=== PATIENT | male | born 1980 | race Caucasian/White ===

== ENCOUNTER 2017-04-29 09:06 | Emergency (ER) | payer SELFPAY ==
[~2017-04-29] VITALS: Ht 185.4 cm; Wt 72.7 kg
[~2017-04-29 09:06] MED LIST: AMOXICILLIN875 MG PO; BAYER BACK & B1 EACH PO; IBUPROFEN200 M2 PO; MIRALAX17 GM/DOSE PO; MOTRIN800 MG PO; NO HOME MEDICATIONS; NORCO 325 MG-51 TA1 PO; NORCO 325 MG-7.1 TA1 PO; ZOFRAN ODT8 MG PO
[2017-04-29] MEDS ORDERED: AMOXIL500 M1 PO (09:37)
[2017-04-29 10:32] VITALS: BP 128/98
== END 2017-04-29 10:32 | disposition home or self-care (01) ==
LOC: ED 09:06
DX: K05.00 Acute gingivitis, plaque induced (principal); K08.89 Other specified disorders of teeth and supporting structures; F17.200 Nicotine dependence, unspecified, uncomplicated

== ENCOUNTER 2017-05-29 09:52 | Emergency (ER) | payer SELFPAY ==
[~2017-05-29] VITALS: Ht 182.9 cm; Wt 72.7 kg
[~2017-05-29 09:52] MED LIST changes: +AMOXIL500 M1 PO
[2017-05-29] MEDS ORDERED: ADVIL 200MG TA200 MG PO (10:07)
[2017-05-29 11:11] VITALS: BP 153/110
== END 2017-05-29 11:15 | disposition home or self-care (01) ==
LOC: ED 09:52
DX: H26.9 Unspecified cataract (principal)

== ENCOUNTER 2017-12-15 13:44 | Emergency (ER) | payer SELFPAY ==
[~2017-12-15] VITALS: Ht 185.4 cm; Wt 81.8 kg
[~2017-12-15 13:44] MED LIST changes: +ADVIL 200MG TA200 MG PO
[2017-12-15] MEDS ORDERED: NORCO 325 MG-51 TA1 PO (15:39)
[2017-12-15 15:48] VITALS: BP 132/100
[2017-12-15] MEDS ORDERED: PHENERGAN 25 TA25 MG PO (16:25)
== END 2017-12-15 15:48 | disposition home or self-care (01) ==
LOC: ED 13:44
DX: G43.809 Other migraine, not intractable, without status migrainosus (principal); H26.9 Unspecified cataract
CPT/HCPCS: J1885

== ENCOUNTER 2019-02-18 11:05 | Emergency (ER) | payer SELFPAY ==
[~2019-02-18] VITALS: Ht 185.4 cm; Wt 81.8 kg
[~2019-02-18 11:05] MED LIST changes: +PHENERGAN 25 TA25 MG PO
[2019-02-18 12:45] VITALS: BP 128/97
== END 2019-02-18 12:40 | disposition home or self-care (01) ==
LOC: ED 11:05
DX: H16.221 Keratoconjunctivitis sicca, not specified as Sjogren's, right eye (principal); H40.9 Unspecified glaucoma; H26.9 Unspecified cataract; F17.210 Nicotine dependence, cigarettes, uncomplicated

== ENCOUNTER 2019-05-13 09:45 | Emergency (ER) | payer SELFPAY ==
[~2019-05-13] VITALS: Ht 182.9 cm; Wt 77.3 kg
[2019-05-13 11:34] VITALS: BP 125/92
== END 2019-05-13 11:13 | disposition home or self-care (01) ==
LOC: ED 09:45
DX: J06.9 Acute upper respiratory infection, unspecified (principal); Z98.890 Other specified postprocedural states

== ENCOUNTER 2020-01-31 13:35 | Emergency (ER) | payer SELFPAY ==
[2020-01-31] MEDS ORDERED: SIMBRINZA 0.2%-18 ML OD (14:02)
[2020-01-31 14:19] VITALS: BP 112/80
== END 2020-01-31 14:20 | disposition home or self-care (01) ==
LOC: ED 13:35
DX: H57.11 Ocular pain, right eye (principal); F17.210 Nicotine dependence, cigarettes, uncomplicated

== ENCOUNTER 2020-09-10 14:27 | Emergency (ER) | payer SELFPAY ==
[~2020-09-10] VITALS: Ht 182.9 cm; Wt 77.3 kg
[~2020-09-10 14:27] MED LIST changes: +LATANOPROST 0.7.5 ML OP; +LATANOPROST 2.2.5 ML OD; +SIMBRINZA 0.2%-18 ML OD; +SYSTANE COMPLET10 ML OP
[2020-09-10 14:37] VITALS: BP 124/92
[2020-09-10] MEDS ORDERED: PREDNISONE20 M1 PO (15:01)
[2020-09-10] MEDS ORDERED: CYCLOBENZAPRINE10 M1 PO (15:01)
== END 2020-09-10 15:20 | disposition home or self-care (01) ==
LOC: ED 14:27
DX: M54.5 Low back pain (principal); F17.210 Nicotine dependence, cigarettes, uncomplicated

== ENCOUNTER → 2021-02-05 | Outpatient (CLI) | payer SELFPAY ==
[~2021-02-05] MED LIST changes: +CYCLOBENZAPRINE10 M1 PO; +PREDNISONE20 M1 PO; +ZITHROMAX 250M250 MG PO
== END ==
LOC: LAB 13:48
DX: Z20.822 Contact with and (suspected) exposure to COVID-19 (principal)

== ENCOUNTER 2021-02-21 10:22 | Emergency (ER) | payer SELFPAY ==
[~2021-02-21 10:22] MED LIST changes: -ZITHROMAX 250M250 MG PO
[2021-02-21 10:37] VITALS: BP 144/102
[2021-02-21 11:08] LABS: BASO # 0.07 (0.02-0.10); EOS # 0.13 (0.04-0.40); EOS % 1.6 % (0.0-4.0); HEMATOCRIT 49.3 % (42.0-52.0); HEMOGLOBIN 15.9 g/dL (13.5-18.0); LYMPH# 1.45 (1.50-4.00); MEAN CELL VOLUME 89 fl (78-100); MEAN CORPUSCULAR HEMOGLOBIN 29 pg (27-31); MEAN CORPUSCULAR HGB CONC 32 g/dL (33-37); MEAN PLATELET VOLUME 10.9 fl (7.4-10.4); NEU # 5.43 (1.40-6.50); PLATELET COUNT 323 K/mm3 (130-400); RED BLOOD COUNT 5.53 M/mm3 (4.20-5.60); RED CELL DISTRIBUTION WIDTH 14.2 % (11.5-14.5); WHITE BLOOD COUNT 8.1 K/mm3 (4.8-10.8)
[2021-02-21 11:18] LABS: ALBUMIN 4.2 g/dL (3.5-5.0)
[2021-02-21 11:19] LABS: POTASSIUM 4.5 mmol/L (3.5-5.1)
[2021-02-21 11:20] LABS: CALCIUM 9.6 mg/dL (8.3-10.5)
[2021-02-21 11:21] LABS: TOTAL PROTEIN 7.5 g/dL (6.4-8.3)
[2021-02-21 11:23] LABS: TOTAL BILIRUBIN 0.3 mg/dL (0.2-1.2)
[2021-02-21 12:06] LABS: URINE APPEARANCE CLEAR; URINE BILIRUBIN NEGATIVE (NEGATIVE); URINE BLOOD NEGATIVE (NEGATIVE); URINE COLOR YELLOW; URINE GLUCOSE NEGATIVE (NEGATIVE); URINE KETONE NEGATIVE (NEGATIVE); URINE LEUKOCYTE ESTERASE NEGATIVE (NEGATIVE); URINE NITRATE NEGATIVE (NEGATIVE); URINE PROTEIN(semi-quant) NEGATIVE (NEGATIVE); URINE UROBILINOGEN NORMAL (NORMAL); URINE WBC 0-1 /hpf (0-3)
[2021-02-21] MEDS ORDERED: ZITHROMAX 250M250 MG PO (12:23)
[2021-02-21] MEDS ORDERED: PREDNISONE20 M1 PO (12:23)
== END 2021-02-21 12:42 | disposition home or self-care (01) ==
LOC: ED 10:22
PROVIDERS: Family Medicine
DX: J45.901 Unspecified asthma with (acute) exacerbation (principal); F17.210 Nicotine dependence, cigarettes, uncomplicated; Z20.822 Contact with and (suspected) exposure to COVID-19
CPT/HCPCS: J7512

== ENCOUNTER → 2021-04-01 | Day surgery (SDC) | payer SELFPAY ==
[~2021-04-01] MED LIST changes: +ZITHROMAX 250M250 MG PO
== END | disposition home or self-care (01) ==
LOC: MSO 09:45
DX: H25.11 Age-related nuclear cataract, right eye (principal); H50.111 Monocular exotropia, right eye; T49.5X6A Underdosing of ophthalmological drugs and preparations, initial encounter; Z91.138 Patient's unintentional underdosing of medication regimen for other reason; I10 Essential (primary) hypertension; H40.9 Unspecified glaucoma; F17.210 Nicotine dependence, cigarettes, uncomplicated; Z79.899 Other long term (current) drug therapy
CPT/HCPCS: 00142; J0171; J2250; J2370; J3010; V2632

== ENCOUNTER → 2021-08-18 | Outpatient (CLI) | payer SELFPAY | LOC: LAB 17:04 | DX: Z20.822 Contact with and (suspected) exposure to COVID-19 (principal) ==

== ENCOUNTER 2022-03-15 04:38 | Emergency (ER) | payer SELFPAY ==
[~2022-03-15] VITALS: Ht 182.9 cm; Wt 77.1 kg
[2022-03-15] MEDS ORDERED: IBU800 M1 PO (05:09)
[2022-03-15] MEDS ORDERED: CEPHALEXIN500 M1 PO (05:49)
[2022-03-15 06:09] VITALS: BP 142/100
== END 2022-03-15 06:10 | disposition home or self-care (01) ==
LOC: ED 04:38
DX: S11.91XA Laceration without foreign body of unspecified part of neck, initial encounter (principal); F17.290 Nicotine dependence, other tobacco product, uncomplicated; Z23 Encounter for immunization; Z28.310 Unvaccinated for COVID-19; X99.1XXA Assault by knife, initial encounter
CPT/HCPCS: 90715

== ENCOUNTER → 2022-03-28 | Outpatient (CLI) | payer SELFPAY ==
[~2022-03-28] MED LIST changes: +CEPHALEXIN500 M1 PO; +IBU800 M1 PO
== END ==
LOC: AMSURD 17:33
DX: Z48.02 Encounter for removal of sutures (principal)